=== PATIENT | female | born 1995 | race Caucasian/White ===

== ENCOUNTER 2020-03-07 09:31 | Outpatient (REF) | payer MEDICAID, SELFPAY | END 2020-03-07 09:32 | disposition home or self-care (01) | LOC: HO.LAB 09:31 | PROVIDERS: Visit Provider Internal Medicine | DX: Z20.828 Contact with and (suspected) exposure to other viral communicable diseases (principal) | CPT/HCPCS: U0003 ==

== ENCOUNTER 2024-12-08 11:47 | Emergency (ER) | payer MEDICARE, MEDICAID, SELFPAY ==
[2024-12-08 11:52] VITALS: BP 143/80; PULSE 122; RESP 18; TEMP 36.6; O2SAT 98; BMI 27.6
--- NOTE | 2024-12-08 11:52 | ED_ITS ---
HPI - General Adult General Chief complaint: General Medical Stated complaint: Pinatal cyst reoccurrence Time Seen by Provider: 12/08/24 12:47 Source: patient and family (mother) Mode of arrival: ambulatory Limitations: no limitations History of Present Illness ED Provider: LEANNE PALMA PA-C HPI narrative: 29 year old female presents to the ED today with concerns for pilonidal cyst. Reports history of pilonidal abscess in 2014 require I&D. She states similar pain to the top of her buttocks x1 week, worsening. Pain is currently 6/10 and is exacerbated with sitting. Denies any drainage from the area. Denies fever/chills. Related Data Previous Rx's ?Medication ?Instructions ?Recorded lamotrigine 25 mg tablet 25 mg PO BID 90 days #180 ta bs 11/11/24 sumatriptan succinate 50 mg tablet See Rx Instructions PO .COMPLEX 30 11/12/24 days #10 tabs cephalexin 500 mg capsule 500 mg PO TID 7 days #21 cap s 12/08/24 doxycycline hyclate 100 mg capsule 100 mg PO BID 7 day s #14 caps 12/08/24 Allergies Allergy/AdvReac Type Severity Reaction Status Date / Time No Known Allergies (No Known Allergy Verified 12/08/24 11:57 Allergies*) Review of Systems Review of Systems: Yes all other systems are reviewed and are negative PMFSH Past Medical History Attestation statement: The following information was validated with the patient. Source: old records reviewed and nursing notes reviewed Social History Social History Advance Directives: No Advance Directives Information Provided: No Do you have a plan to hurt others: No Plan Physical Exam ED Vital Signs: Vital Signs - 24 hr 12/08/24 11:52 12/08/24 14:00 12/08/24 14:42 Temperature 98 F 97.9 F 97.9 F Pulse Rate 122 H 101 H 101 H Respiratory Rate 18 16 16 Blood Pressure 143/80 H 110/72 110/72 Pulse Oximetry 98 98 98 Oxygen Delivery Method Room Air Room Air Room Air BMI result Body Mass Index 27.6 tachycardic, vitals stable General: Well appearing, in no acute distress. Skin: +see below Head: Normocephalic, atraumatic. EENT: Hearing is intact b/l. Conjunctiva clear. PERRLA. EOM intact. Moist mucous membranes.? Neck: Supple without LAD Cardiac: Chest wall symmetric. RRR Lungs: Normal respiratory effort without accessory muscle use. CTA bilaterally Back: +2cm x 2cm area of induration noted to gluteal cleft with minimal overlying erythema. No pointing. No palpable fluctuance. warm, exquisitely tender to palpation. Ext: Upper and lower extremities atraumatic, without tenderness, deformity, swelling or erythema Neuro: AOx3. Normal speech. Ambulating with steady gait. Course Course Course Narrative: This is an RME performed by Arik Chávez, SUSTAINABLE SYSTEMS ANALYST: Additional HPI, ROS, PE not included below will be deferred to primary provider. Patient is a 1 female who presents emergency department expressing concern for a pilonidal cyst. She reports a history of 1 occurring in 2013 requiring incision and drainage. She reports onset of the symptoms approximately 2 weeks ago, no active drainage. Pain 6/10, worse while sitting. No fevers or chills. Plan: Pending bed availability for examination, not viewed in triage due to privacy Reevaluation(s) Reevaluation #1: Physical exam concerning for pilonidal cyst with developing infection. There is no evidence of abscess on exam. There is no fluctuance. I do not appreciate any area that I would be able to drain. She has been treated with Toradol in the ED. She is tachycardic however she appears very anxious regarding the pain. She is afebrile and overall well-appearing. Will start her on Keflex and doxycycline. First dose given in the ED today. Patient has remained stable throughout ED visit today. Discussed worrisome signs and symptoms and when to return to the ED. All questions answered at this time. Patient is agreeable with disposition and stable for discharge. Medications Administered Discontinued Medications Generic Name Dose Route Start Last Admin Trade Name Freq PRN Reason Stop Dose Admin Cephalexin HCl 500 mg 12/08/24 14:12/08/24 14:26 Cephalexin 500 Mg Capsule PO 12/08/24 14:09 500 mg ONCE ONE Administration Doxycycline Monohydrate 100 mg 12/08/24 14:12/08/24 14:26 Doxycycline Monohydrate 100 Mg Capsule PO 12/08/24 14:09 100 mg ONCE ONE Administration Ketorolac Tromethamine 30 mg 12/08/24 13:18 12/08/24 13:53 Ketorolac Tromethamine 30 Mg/Ml Vial IM 12/08/24 13:19 30 mg ONCE ONE Administration Medical Decision Making Medical Decision Making MDM Narrative: 29 year old female presents to the ED today with concerns for pilonidal cyst. patient is tachycardic, afebrile. she is anxious appearing however in NAD. on exam, 2cm x 2cm area of induration noted to gluteal cleft with minimal overlying erythema. No pointing. No palpable fluctuance. warm, exquisitely tender to palpation. Differential diagnosis includes pilonidal cyst, pilonidal abscess, cellulitis. Unlikely fistula, osteomyelitis. Differential Diagnosis Differential Diagnoses: The differential diagnosis associated with the presentation includes as above. Admission/Observation not indicated. Independent Historian Clinical information obtained from an independent historian. History obtained from or confirmed by: Parent (mother) External Record Review External record reviewed: Inpatient record Prescription Management I considered prescription management with: Pain Medication and Antibiotic (Keflex, doxycycline) Social Determinants Patient?s care significantly limited by Social Determinants of Health including: Other Social Determinant of Health Critical Care Time Critical Care Time Critical Care Time: No Discharge Plan Discharge Clinical Impression: Pilonidal cyst Patient Disposition: Home, Self-Care Instructions: Pilonidal Cyst (ED) Additional Instructions: You have a pilonidal cyst. There does not appear to be a clear abscess that I could drain. Please keep the surrounding area clean and dry. You will be given a prescription for antibiotics (Keflex and Doxycycline). Please take the antibiotics as directed for the full course of the medication. If the infection progresses to an abscess, it may have to be incised and drained. On doxycycline, do not take pills immediately before going to bed and swallow pills with plenty of water. Avoid direct sunlight, iron, antacids, and Pepto Bismol. Call your provider if you develop new ringing in your ears, new problems hearing, dizziness, difficulty swallowing, rash, abdominal discomfort, nausea, or diarrhea. On a cephalosporin?antibiotic (keflex) softer bowel movements are to be expected. Call your provider if you move your bowels more than 4 times a day, your bowel movements are almost all liquid, or you get a rash.? I recommend you take 600mg ibuprofen every 6 hours or Tylenol 650mg every 6 hours as needed for pain. If needed, you can alternate these medications so that you take one medication every 3 hours. For example, at noon take ibuprofen, then at 3pm take Tylenol, then at 6pm take ibuprofen. Please schedule an appointment with your primary care provider as soon as possible for follow up. You have also been provided with a referral to a general surgeon. You may call them to establish care. They will not call you. Return to the Emergency Department if you experience fevers greater than 100.4F, increase in area of redness or swelling, increasing amount of discharge from the area, increased tenderness around the area, or any other concerning symptoms. Prescriptions: New doxycycline hyclate 100 mg capsule 100 mg PO BID 7 Days Qty: 14 0RF cephalexin 500 mg capsule 500 mg PO TID 7 Days Qty: 21 0RF No Action lamotrigine 25 mg tablet 25 mg PO BID 90 Days Qty: 180 0RF sumatriptan succinate 50 mg tablet See Rx Instructions PO .COMPLEX 30 Days Qty: 10 5RF Rx Instructions: take 1 tab at onset of headache; if no relief may repeat 1 tab after at least 2 hrs; PO Referrals: [facility] [place] [facility] [Provider Group, General Surgery] Interventions: ED Discharge Assessment Last Done: 12/08/24 14:42 Discharge Date/Time: 12/08/24 14:43 Print Language: Tuvaluan
[2024-12-08 14:00] VITALS: BP 110/72; PULSE 101; RESP 16; TEMP 36.6; O2SAT 98
[2024-12-08 14:42] VITALS: BP 110/72; PULSE 101; RESP 16; TEMP 36.6; O2SAT 98
== END 2024-12-08 14:43 | disposition home or self-care (01) ==
PROVIDERS: Emergency Provider Emergency Medicine Emergency Medical Services; PCP Internal Medicine Infectious Disease
DX: L05.91 Pilonidal cyst without abscess (principal)
CPT/HCPCS: 96372; 99283; 99284; J1885

== ENCOUNTER 2024-12-09 06:12 | Emergency (ER) | payer MEDICARE, MEDICAID, SELFPAY ==
[2024-12-09 06:14] VITALS: BP 110/70; PULSE 118; RESP 20; TEMP 37; O2SAT 98; BMI 27.3
--- NOTE | 2024-12-09 08:10 | PC.NURSE ---
pt was seen by provider and plan is for an I+D. Pt agreeable to plan
[2024-12-09] MEDS: Lidocaine HCl 1 % MPF 5 ML VIAL SUBCUT (08:35)
--- NOTE | 2024-12-09 09:07 | ED.SKABFB ---
HPI - Skin/Abscess/Foreign Bdy General Chief complaint: Skin/Abscess/Foreign Body Stated complaint: General Medical Time Seen by Provider: 12/09/24 07:57 Source: patient, family and RN notes reviewed Mode of arrival: ambulatory Limitations: no limitations History of Present Illness ED Provider: Kacie Laws PA-C HPI narrative: This is a 29-year-old female who presents emergency department with concerns of cyst to buttocks region x 1 week.. Patient was seen here in the emergency room yesterday however states that overnight she noticed the area was causing her increased pain, and she noticed some drainage this morning. She denies any fevers or chills. She took her dose of antibiotics yesterday in the emergency room. She has not taken her next dose of antibiotics as she has not been able to go to the pharmacy as of yet, as she was going to pick this up this morning. Denies taking any medications at home to treat her current pain this morning. No other complaints or concerns at this time. MD complaint: abscess/boil Onset (ago): day(s) Quality: aching Pain Consistency: constant Relieving factors: none Exacerbating factors: none Context: none Associated symptoms: denies other symptoms Treatments prior to arrival: none Related Data Previous Rx's ?Medication ?Instructions ?Recorded lamotrigine 25 mg tablet 25 mg PO BID 90 days #180 tabs 11/11/24 sumatriptan succinate 50 mg tablet See Rx Instructions PO .COMPLEX 30 11/12/24 days #10 tabs cephalexin 500 mg capsule 500 mg PO TID 7 days #21 caps 12/08/24 doxycycline hyclate 100 mg capsule 100 mg PO BID 7 days #14 caps 12/08/24 Allergies Allergy/AdvReac Type Severity Reaction Status Date / Time No Known Allergies (No Known Allergy Verified 12/09/24 06:16 Allergies*) Review of Systems Review of Systems: Yes all other systems are reviewed and are negative Constitutional: Constitutional: Reports as per [facility] Social History Social History Advance Directives: No Advance Directives Information Provided: No Physical Exam Vital Signs: Vital Signs: Last Vital Signs Temp 98.6 F 12/09/24 06:14 Pulse 118 H 12/09/24 06:14 Resp 20 12/09/24 06:14 BP 110/70 12/09/24 06:14 Pulse Ox 98 12/09/24 06:14 O2 Del Method Room Air 12/09/24 06:14 BMI result Body Mass Index 27.3 Const: General: cooperative, comfortable and no acute distress Orientation/consciousness: patient oriented x3 Limitations: no limitations HEENT: Head: Yes normal to inspection, Yes normocephalic and Yes atraumatic Ears: hearing grossly normal bilaterally General nose exam: Normal external nose present Face and sinus: Yes normal facial exam Mouth: Normal oral and palatal mucosa present, oropharynx normal and moist mucous membranes Throat: Yes posterior oropharynx normal Eyes: General: appearance normal, both eyes and all related structures Eyelids: Yes eyelids normal Conjunctivae: conjunctivae normal Sclerae: sclerae normal Pupils: Equal, round and reactive pupils present EOM: EOMs intact bilaterally Neck: Neck: Yes normal visual inspection, Yes full ROM and Yes no lymphadenopathy Lymphatic: no lymphadenopathy noted Chest: Chest palpation & inspection: normal inspection of the chest Resp: Effort & Inspection: normal respiratory effort and able to speak in complete sentences Auscultation: clear to auscultation bilaterally, no crackles, no rales, no rhonchi and no wheezes Cardio: Rate: regular rate Rhythm: regular rhythm Heart sounds: S1 normal heart sound present and S2 normal heart sound present GI: Inspection: Yes normal to inspection Skin: Other: Right buttock, upper aspect just along the gluteal cleft, there is a 2 cm x 2 cm area of induration and fluctuance, with active drainage. No surrounding erythema or warmth. General skin exam: no rashes or lesions noted Trauma: no lacerations or abrasions Wounds: no wounds Neuro: General: patient oriented x3 and moves all extremities Cranial nerves: Yes Equal, round and reactive pupils present Extrem: General: Yes normal to inspection Right upper extremity: normal to inspection Left upper extremity: normal to inspection Right lower extremity: normal to inspection Left lower extremity: normal to inspection Medications Administered Discontinued Medications Generic Name Dose Route Start Last Admin Trade Name Freq PRN Reason Stop Dose Admin Acetaminophen 975 mg 12/09/24 08:25 12/09/24 08:34 Acetaminophen 325 Mg Tablet PO 12/09/24 08:26 975 mg ONCE ONE Administration Lidocaine HCl 5 ml 12/09/24 08:25 12/09/24 08:35 Lidocaine Hcl 1 % Mpf 5 Ml Vial SUBCUT 12/09/24 08:26 5 ml ONCE ONE Administration Medical Decision Making Medical Decision Making [facility] Narrative: This is a 29-year-old female who presents emergency department with concerns of abscess to buttocks region started several days ago. Patient was seen here yesterday after noticing this region, she was started on antibiotics. She states that overnight the area started to drain. On examination, patient has a draining pilonidal abscess, given appearance, we will perform an incision and drainage as she has further areas of induration and fluctuance. Patient providing consent for procedure. See procedure note for details. Patient medicated with Tylenol p.o. prior to this. Patient tolerated procedure well without any complications or concerns. Given wound care instructions. Given return precautions. She was already prescribed antibiotics yesterday, advised to continue taking these. Advised to return in 48-72 hours or follow-up with PCP for wound check. Patient stable for discharge. Differential Diagnosis Differential Diagnoses: The differential diagnosis associated with the presentation includes Pilonidal cyst, abscess, cellulitis Procedures Abscess I/D Site: christy-rectal Side (if applicable): right Local Anesthetic: lidocaine 1% Amount of anesthesia used (mL): 5 Technique: incised with blade Amount of fluid expressed (mL): 10 Sent for culture/gram staining?: No Irrigation: Yes Packing used?: iodoform Discharge Plan Discharge Clinical Impression: Pilonidal abscess Patient Disposition: Home, Self-Care Instructions: Pilonidal Cyst (ED), Abscess (ED), Incision and Drainage (ED) Additional Instructions: You were seen in the ER today in you were found to have a pilonidal abscess. We performed an incision and drainage. Please continue taking antibiotics as directed, finish the entire course even if your symptoms improve. Continue taking ibuprofen and or Tylenol as needed for pain and symptoms. Please be advised that this area will be very sore over the next couple of days. Warm compresses will be helpful to help continue getting the drainage out. We had placed a wick in his area, this may fall out on its own however if it does not, you may return in 48-72 hours for this to be removed and to have a wound check. I am recommending that regardless if the wick falls out or not, you should return or follow-up with your primary care to ensure that the area is healing well. I am also recommending that you still follow-up with the surgical services, call to make an appointment. If any new or worsening symptoms occur including but not limited to increased redness, swelling, pain, fevers, chills, please seek emergent care. Prescriptions: No Action lamotrigine 25 mg tablet 25 mg PO BID 90 Days Qty: 180 0RF sumatriptan succinate 50 mg tablet See Rx Instructions PO .COMPLEX 30 Days Qty: 10 5RF Rx Instructions: take 1 tab at onset of headache; if no relief may repeat 1 tab after at least 2 hrs; PO doxycycline hyclate 100 mg capsule 100 mg PO BID 7 Days Qty: 14 0RF cephalexin 500 mg capsule 500 mg PO TID 7 Days Qty: 21 0RF Referrals: [facility] [place] General Surgeons [Provider Group, General Surgery] Print Language: Burundian
[2024-12-09 10:11] VITALS: BP 110/70; PULSE 118; RESP 20; TEMP 37; O2SAT 98
== END 2024-12-09 10:11 | disposition home or self-care (01) ==
PROVIDERS: Emergency Provider Emergency Medicine Emergency Medical Services; PCP Physician Assistant
DX: L05.01 Pilonidal cyst with abscess (principal); L70.1 Acne conglobata
CPT/HCPCS: 99283; 99284; J2003

== ENCOUNTER 2024-12-11 13:42 | Outpatient (AMB) | payer MEDICARE, MEDICAID, SELFPAY ==
--- NOTE | 2024-12-11 13:47 | MHC.OFFVIS ---
Vital Signs 12/11/24 13:57 Height 5 ft 4 in Weight 157 lb BMI 26.9 BP 120/71 Blood Pressure Location Rt brachial Position Sitting Pulse 92 Intake Visit Reasons: Infected pilonidal cyst Intake Note: Patient seen at [facility] ED on 12-09-2024 for pilonidal cyst abscess. Reports Cephalexin, Doxycycline course started 2 days ago. Patient c/o: wick still in place. Denies pain. Maintenance Construction Helper Required: No Accompanied by: mother Isela Allergies No Known Allergies (No Known Allergies*) Allergy (Verified 12/11/24 13:54) HPI HPI Infected pilonidal cyst: Details: [age] year old female referred for a pilonidal cyst. She apparently went to the ER 3 days ago because of an area of swelling and tenderness along with discharge in the sacrococcygeal aspect. She had an I&D done there and was referred to me because of a pilonidal cyst with an abscess She says that she had a previous episode of the same problem 11 years ago. She had an I&D done at that time as well. She never had any episodes last 11 years after She currently feels well. Her mother states that she is in the autism spectrum. [facility] Medical History (Updated 12/11/24 @ 14:15 by Willy Juarez MD) Sacrococcygeal pilonidal cyst Autism spectrum disorder Migraine Anxiety Seizure disorder Surgical History History of placement of ear tubes Social History Alcohol intake: never Patient Tobacco Use Status: Never used Tobacco Review of Systems Const Denies chills and Denies fever(s) Card Denies chest pain, Denies dyspnea and Denies dyspnea on exertion Resp Denies cough, Denies dyspnea and Denies dyspnea on exertion GI Denies hematochezia and Denies change in bowel habits Denies hematuria Musc Denies back pain and Denies limited range of motion Neuro Denies focal weakness and Denies convulsions Psych Denies depression and Denies mood swings Physical Exam Back/Spine/Pelvis Other: Midline pits noted within the gluteal cleft, I&D site to the right of the midline with no obvious residual fluctuance or induration, no cellulitis, no discharge Assessment & Plan Assessment & Plan (1) Sacrococcygeal pilonidal cyst: Code(s): L05.91 - Pilonidal cyst without abscess Category: Medical Plan She has midline pits in the gluteal cleft along with what appears to be an I&D site to the right of the midline near this. There is no fluctuance nor any residual induration. The areas seems to be healing very well. I explained to her the technique of formal excision of the pilonidal cyst from the sacrococcygeal area under anesthesia. I reviewed the risks including but not limited to bleeding, infections, poor healing, postop pain, as well as the benefits and alternatives. I explained to her what to expect postoperatively. This is only the 2nd time that she has had this problem after 11 years, I told her that she is reasonable to hold off on surgical incision as the area seems to be healing very well. She preferred to hold off on surgery at this time. She understands that she can come back to the office on a PRN basis if she wants this re-evaluated. Her mother was with her during the visit. Coding Level of Care Code New Pt Level 3 (45794) Diagnoses Sacrococcygeal pilonidal cyst L05.91
[2024-12-11 13:57] VITALS: BP 120/71; PULSE 92; BMI 26.9
--- OUTSIDE RECORDS SUMMARY | 2024-12-11 14:11 | XMS_ITS | Encounter Summary ---
Author Organization [facility] Address [address] [address] Phone Care Team Providers Care Vice President Process Name Role Phone Chandrika Heard NP Primary Care Provider [phone] Adilia Quinn MD Unavailable + Marva Nair MD Unavailable Joaquin Thao MD Unavailable [phone] Kamille Catherine RN Unavailable Encounter Details Date Type Department Care Team (Late st Contact Info) Description 12/31/2020 Transcribe Orders Virtual Department [address] [place] [address] Chandrika Heard NP [address] [place] [address] [phone] Encounter for screening laboratory testing for COVID-19 virus (Primary Dx) Social History Tobacco Use Types Packs/Day Years Used Date Smoking Tobacco: Never Smokeless Tobacco: Never Alcohol Use Standard Drinks/Week Comments Not Currently 0 (1 standard drink = 0.6 oz pur e alcohol) Comments Unknown Sex and Gender Information Value Date Recorded Sex Assigned at Not on file Legal Sex Female 2:46 PM EST Gender Identity Not on file Sexual Orientation Not on file documented as of this encounter Plan of Treatment Not on file documented as of this encounter Visit Diagnoses Diagnosis Encounter for screening laboratory testing for COVID-19 virus- Primary documented in this encounter Additional Health Concerns Infection Onset Date Last Indicated Resolved Time CoV-Exposed Comment:Recent close contact documented in the COVID-19 PCR/PRO order 12/29/2020 12/31/2020 01/13/2021 1:23 AM E DT documented as of this encounter Care Teams Vice President Process Relationship Specialty Start Date End Date Chandrika Heard, FUSION ANALYST [address] [place] [address] PCP - General Nurse Practitioner 03/20/19 Adilia Quinn MD [address] [place] [address] [email or web address] Insurance Assigned Provider 06/13/20 04/23/21 Marva Nair MD [address] [place] [id number] Insurance Assigned Provider 04/23/21 08/14/21 Joaquin Thao MD [address] [place] [id number] Insurance Assigned Provider 08/14/21 01/14/23 Kamille Catherine, RN [address] [place] [id number] [email or web address] Poker Manager 08/04/23 08/09/23 documented as of this encounter Additional Source Comments The information contained in this document represents components of the legal health record. It is not the complete legal health record.[facility]
== END 2024-12-11 14:11 | disposition home or self-care (01) ==
LOC: HO.HGS 13:42
PROVIDERS: PCP Physician Assistant; Visit Provider Surgery
DX: L05.91 Pilonidal cyst without abscess (principal)
CPT/HCPCS: 99203

== ENCOUNTER → 2024-12-11 13:42 | Outpatient (BNVA) | payer MEDICARE, MEDICAID, SELFPAY | PROVIDERS: PCP Physician Assistant; Visit Provider Surgery | DX: L05.91 Pilonidal cyst without abscess (principal) | CPT/HCPCS: 99202 ==

== ENCOUNTER 2024-12-16 10:45 | Outpatient (AMB) | payer MEDICAID, SELFPAY ==
--- NOTE | 2024-12-16 11:00 | A.OFFVIS_ITS ---
Intake Visit Reasons: Epilepsy Allergies No Known Allergies (No Known Allergies*) Allergy (Verified 12/11/24 13:54) Medication List - Last Reconciled 12/16/24 by Apryl Powers MD cephalexin 500 mg PO TID 7 days doxycycline hyclate 100 mg PO BID 7 days hydroxyzine HCl 50 - 100 mg PO BEDTIME PRN lamotrigine 100 mg PO BID lamotrigine 25 mg PO BID 90 days sumatriptan succinate take 1 tab at onset of headache; if no relief may repeat 1 tab after at least 2 hrs; PO 30 days topiramate 25 mg PO BEDTIME trazodone 200 - 300 mg PO BEDTIME PRN HPI Comments Details: 29 y/o woman with autism spectrum disorder, migraine, and generalized seizure disorder. (Her first seizure happened when she was a few months old. She went very lethargic, her eyes went to the left and stayed there, and there was an hour or two when she did not do anything. She continued to have those spells every few months. She was evaluated at [facility] and was put on Phenobarbital. She continued taking it until she was 11 years old. Seiuzres were less often on it. After she was 11, she stopped having them. At age 21, she had another seizure. This was different. Apparently, she was with someone in a car when she did not feel well. A few minutes later she was noted to have a seizure with eyes rolled over and frothing for about 30 seconds.) PENDING SALE TO [facility] Medical History (Updated 12/16/24 @ 11:03 by Apryl Powers MD) Sacrococcygeal pilonidal cyst Autism spectrum disorder Migraine Anxiety Seizure disorder Surgical History History of placement of ear tubes Social History Alcohol intake: never Patient Tobacco Use Status: Never used Tobacco Review of Systems Const Details: Constitutional:?No fever, chills, fatigue, weight loss, or night sweats. HEENT:?No headache, vision changes, hearing loss, nasal congestion, sore throat. Neurological:?No dizziness, syncope, seizures, numbness, tingling, weakness, tremors, memory loss. Psychiatric:?No anxiety, depression, mood swings, sleep disturbance, or hallucinations. Endocrine:?No heat/cold intolerance, polydipsia, polyuria, or hair/skin changes. Hematologic/Lymphatic:?No easy bruising, bleeding, or lymphadenopathy. Integumentary (Skin):?No rash, lesions, itching, or color changes. ? Physical Exam Neuro Other: Mental Status: Alert and oriented to person, place, and time. Normal attention. Normal spontaneous speech, fluency, and comprehension. No obvious issues with mood and memory. Affect is appropriate. Cranial Nerves: CN II: Visual nicolas full to confrontation, visual acuity intact. CN III, IV, : Pupils equal, round, reactive to light and accommodation. Extraocular movements are normal. CN V: Facial sensation is normal. CN VII: Facial movements symmetrical. CN VIII: Hearing intact to bedside conversation is normal. CN IX, X: Palate elevates symmetrically. CN XI: Shoulder shrug and head turn symmetrical. CN XII: Tongue midline without atrophy or fasciculations. Extrapyramidal: Full facial expressions and blinking. No rigidity. Movements are appropriate with no tremor or abnormality. Speech: Normal; no dysarthria or tremor. Assessment & Plan Assessment & Plan (1) Seizure disorder: Comment: Meds tried for seizures: Phenobarbital, lamotrigine Meds tried for migraine: Propranolol, lamotrigine, topiramate EEG at off in Dec 2023: L temp sharps Routine EEG at office in September 2016: left temp sharps CT brain WO at [facility] [place] in [place] 2016: WNL MRI brain WO at [facility] [place] in September 2016: WNL. Code(s): G40.909 - Epilepsy, unspecified, not intractable, without status epilepticus Category: Medical (2) Migraine: Code(s): G43.909 - Migraine, unspecified, not intractable, without status migrainosus Category: Medical Qualifiers: Migraine type: migraine (< 15 days per month) without aura Status migrainosus presence: without status migrainosus Intractability: not intractable Qualified Code(s): G43.009 - Migraine without aura, not intractable, without status migrainosus Plan Impression: a: Migraine w/o aura b: Complex partial seizure do Rec: [id number] bid Lamotrigine 25mg bid Topiramate 25mg one at bedtime Sumatriptan 50mg one a day as needed Coding Level of Care Code Est Pt Level 4 (12659) Diagnoses Seizure disorder G40.909 Migraine without aura and without status migrainosus, not intractable G43.009 Migraine type: migraine (< 15 days per month) without aura Status migrainosus presence: without status migrainosus Intractability: not intractable
--- OUTSIDE RECORDS SUMMARY | 2024-12-16 11:28 | XMS_ITS | Encounter Summary ---
Author Organization [facility] Address [address] [address] Phone Care Team Providers Care Chief Maintenance Supervisor Name Role Phone Chandrika Heard NP Primary Care Provider Adilia Quinn MD Unavailable + Marva Nair MD Unavailable Joaquin Thao MD Unavailable Kamille Catherine RN Unavailable Encounter Details Date Type Department Care Team (Late st Contact Info) Description 12/31/2020 Transcribe Orders Virtual Department [address] [place] [address] Chandrika Heard, DARIN [address] [place] [address] [phone] Encounter for screening laboratory testing for COVID-19 [...] documented as of this encounter Care Teams Chief Maintenance Supervisor Relationship Specialty Start Date End Date Chandrika Heard, WINDOWS CONSULTANT [address] [place] [address] PCP - General Nurse Practitioner 03/20/19 Adilia Quinn MD [address] [place] [address] [email or web address] Insurance Assigned Provider 06/13/20 04/23/21 Marva Nair MD [address] [place] [id number] Insurance Assigned Provider 04/23/21 08/14/21 Joaquin Thao MD [address] [place] [id number] Insurance Assigned Provider 08/14/21 01/14/23 Kamille Catherine, RN [address] [place] [id number] [email or web address] T[employer] 08/04/23 08/09/23 documented as of this encounter Additional Source Comments The information contained in this document represents components of the legal health record. It is not the complete legal health record.[facility]
== END 2024-12-16 11:10 | disposition home or self-care (01) ==
LOC: HO.HSM 10:46
PROVIDERS: PCP Internal Medicine Infectious Disease; Referring Provider Physician Assistant; Visit Provider Psychiatry & Neurology Neurology
DX: G40.909 Epilepsy, unspecified, not intractable, without status epilepticus (principal); G43.009 Migraine without aura, not intractable, without status migrainosus
CPT/HCPCS: 99214

== ENCOUNTER → 2024-12-16 10:45 | Outpatient (BNVA) | payer MEDICAID, SELFPAY | PROVIDERS: PCP Internal Medicine Infectious Disease; Referring Provider Physician Assistant; Visit Provider Psychiatry & Neurology Neurology | DX: G43.009 Migraine without aura, not intractable, without status migrainosus (principal) | CPT/HCPCS: 99212 ==